=== PATIENT | female | born 1980 | race African-American/Black ===

== ENCOUNTER 2021-11-04 22:39 | Emergency (ER) | payer OTHER ==
[~2021-11-04] VITALS: Ht 170.2 cm; Wt 86.2 kg
[2021-11-04 23:32] VITALS: BP_SYST 137
--- NOTE | 2021-11-04 23:35 | NUR ---
Patient triaged and placed in waiting room. VS checked and patient appears in no acute distress at this time. Awaiting available bed, and MD notified of need for MSE.
--- NOTE | 2021-11-05 01:13 | NUR ---
Patient ambulatory to bed 7 for evaluation and treatment
--- NOTE | 2021-11-05 01:19 | NUR ---
PT COMES TO ER , AMBULATES WITH C/O LOWER MID BACK PAIN X 5 DAYS AN DLEFT EARACHE X 3 DAYS. DENIES TRAUMA/INJURY, DENIES FEVERS/CHILLS/DYSURIA. BAUTISTA NON RADITING AND WORSE WITH MOEVEMNT, DENIES FLANKA PAIN.
--- NOTE | 2021-11-05 01:54 | NUR ---
DR ABBOTT IN ROOM FOR EXAM
[2021-11-05] MEDS ORDERED: NAPR-1172 PO (02:13)
[2021-11-05] MEDS ORDERED: KETOROLAC TROMETHAMINE 60 MG/2 ML VIAL IM ONE (02:15)
--- NOTE | 2021-11-05 02:27 | NUR ---
Patient given written and verbal discharge instructions and verbalizes understanding. ER MD discussed with patient the results and treatment provided. Patient in stable condition. ID arm band removed. Rx of NAPROXYN, NORCO given. Patient educated on pain management and to follow up with PMD. Pain Scale . Opportunity for questions provided and answered. Medication side effect fact sheet provided.
[2021-11-05 02:29] VITALS: BP_SYST 133
== END 2021-11-05 02:29 | disposition home or self-care (01) ==
LOC: SED 22:39
DX: M54.50 Low back pain, unspecified (principal); H92.02 Otalgia, left ear; X50.1XXA Overexertion from prolonged static or awkward postures, initial encounter; Y93.89 Activity, other specified; Y92.89 Other specified places as the place of occurrence of the external cause; Y99.8 Other external cause status
CPT/HCPCS: 81025; 96372; 99283; J1885

== ENCOUNTER 2022-06-05 17:33 | Emergency (ER) | payer OTHER ==
[~2022-06-05] VITALS: Ht 170.2 cm; Wt 86.6 kg
[~2022-06-05 17:33] MED LIST: NAPR-1172 PO
[2022-06-05 17:49] VITALS: BP_SYST 122
[2022-06-05] MEDS ORDERED: KETOROLAC TROMETHAMINE 60 MG/2 ML VIAL IM ONE (20:00)
--- NOTE | 2022-06-05 20:00 | NUR ---
MD WITH PATIENT FOR EVALUATION.
--- NOTE | 2022-06-05 20:06 | NUR ---
Patient to ER bed 7 to gown for evaluation. Side rails up. Report given to Ashlee CHENEY.
--- NOTE | 2022-06-05 20:10 | NUR ---
PT FROM HOME WITH C/O OF BACK PAIN AFTER MECHANICAL SLIP ON STAIRS AT HOME. PT DENIES HEAD TRAUMA AND LOC. PT A&O X4, AMBULATORY, AND FOLLOWING SIMPLE COMMANDS. SAFETY PRECAUTIONS IN PLACE.
[2022-06-05] MEDS ORDERED: SOM350 PO (21:25)
[2022-06-05] MEDS ORDERED: IBUP-1969 PO (21:25)
[2022-06-05 21:31] VITALS: BP_SYST 122
--- NOTE | 2022-06-05 21:32 | NUR ---
Patient given written and verbal discharge instructions and verbalizes understanding. ER MD discussed with patient the results and treatment provided. Patient in stable condition. ID arm band removed. Rx of Soma and Ibuprofen given. Patient educated on pain management and to follow up with PMD. Pain Scale 2/10. Opportunity for questions provided and answered. Medication side effect fact sheet provided.
== END 2022-06-05 21:31 | disposition home or self-care (01) ==
LOC: SED 17:33
DX: S33.5XXA Sprain of ligaments of lumbar spine, initial encounter (principal); Z79.899 Other long term (current) drug therapy; W10.9XXA Fall (on) (from) unspecified stairs and steps, initial encounter; Y93.89 Activity, other specified; Y92.89 Other specified places as the place of occurrence of the external cause; Y99.8 Other external cause status
CPT/HCPCS: 99283; 72100; 81002; 81025; 96372; J1885